=== PATIENT | male | born 1965 ===

== ENCOUNTER 2018-07-29 09:36 | Outpatient (CLI) | payer OTHER | END 2018-07-29 10:00 | disposition home or self-care (01) | LOC: OFIC 805 09:36 | DX: H92.01 Otalgia, right ear (principal); H60.501 Unspecified acute noninfective otitis externa, right ear ==

== ENCOUNTER 2018-08-16 11:31 | Outpatient (CLI) | payer OTHER ==
[~2018-08-16] VITALS: Ht 152.4 cm; Wt 70.8 kg
== END 2018-08-16 11:45 | disposition home or self-care (01) ==
LOC: OFIC 805 11:31
DX: H60.591 Other noninfective acute otitis externa, right ear (principal); H92.01 Otalgia, right ear

== ENCOUNTER 2018-08-16 12:18 | Outpatient (CLI) | payer OTHER | END 2018-08-16 12:30 | disposition home or self-care (01) | LOC: LAB 12:18 | DX: H61.91 Disorder of right external ear, unspecified (principal) ==

== ENCOUNTER 2018-08-25 11:33 | Outpatient (CLI) | payer OTHER ==
[~2018-08-25] VITALS: Ht 152.4 cm; Wt 70.8 kg
== END 2018-08-25 11:45 | disposition home or self-care (01) ==
LOC: OFIC 805 11:33
DX: H92.01 Otalgia, right ear (principal); H60.8X1 Other otitis externa, right ear

== ENCOUNTER 2018-11-28 11:08 | Outpatient (CLI) | payer OTHER | END 2018-11-28 11:41 | disposition home or self-care (01) | LOC: RAD 501 11:08 | DX: M54.5 Low back pain (principal); M77.42 Metatarsalgia, left foot ==

== ENCOUNTER 2019-05-25 16:35 | Emergency (ER) | payer OTHER ==
[~2019-05-25] VITALS: Ht 170.2 cm; Wt 81.6 kg
== END 2019-05-25 18:53 | disposition home or self-care (01) ==
LOC: ER 16:35
DX: A90 Dengue fever [classical dengue] (principal)